=== PATIENT | male | born 1970 | race American Indian/Alaskan Native ===

== ENCOUNTER 2019-06-08 10:45 | Emergency (ER) | payer SELFPAY ==
[2019-06-08 11:11] LABS: Basophils % (Auto) 0.3 % (0.0-1.8); Eosinophils % (Auto) 0.3 % (0.0-4.3); Hematocrit 40.4 % (35.5-45.6); Hemoglobin 13.5 gm/dl (11.8-15.2); Lymphocytes # (Auto) 3.4 K/mm3 (1.2-5.4); Lymphocytes % (Auto) 26.8 % (13.4-35.0); Mean Corpuscular HGB Conc 33 % (32-34); Mean Corpuscular Volume 84 fl (84-94); Monocytes # (Auto) 0.7 K/mm3 (0.0-0.8); Monocytes % (Auto) 5.8 % (0.0-7.3); Platelet Count 296 K/mm3 (140-440); Red Blood Count 4.83 M/mm3 (3.65-5.03); Red Cell Distribution Width 14.2 % (13.2-15.2)
[2019-06-08 11:31] LABS: BUN/Creatinine Ratio 14; Blood Urea Nitrogen 11 mg/dL (9-20); Hemolysis Index 7
[2019-06-08] MEDS ORDERED: MORPHINE IV ONE (11:57)
[2019-06-08] MEDS ORDERED: NITROSTAT SL ONE (11:58)
[2019-06-08] MEDS ORDERED: ZOFRAN IV ONE (11:58)
[2019-06-08] MEDS ORDERED: ASPIRIN PO SCH (12:00)
--- NOTE | 2019-06-08 12:28 | XRay Report ---
CHEST 2 VIEWS INDICATION: Chest Pain. COMPARISON: None. FINDINGS: Support devices: None. Heart: Within normal limits. Lungs/Pleura: No acute air space or interstitial disease. No significant pleural effusion. IMPRESSION: No acute findings. Signer Name: Francisco Rodriguez MD Signed: 06/08/2019 12:24 PM Workstation Name: [id number]
--- NOTE | 2019-06-08 14:39 | Cat Scan Report ---
CT angio chest INDICATION / CLINICAL INFORMATION: chest pain, sob. TECHNIQUE: Axial CT images were obtained after injection of Omnipaque 350, 100 cc IV injection. IV contrast usin g CTA protocol. 3 plane MIP / 3D reconstructions were produced. All CT scans at this location are per formed using CT dose reduction for ALARA by means of automated exposure control. COMPARISON: None available. FINDINGS: The lungs contain no mass, infiltrate or pleural fluid. Negative for mediastinal mass or adenopathy. 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 Negative for aneurysm, dissection or pulmonary embolus. Imaging of the upper abdomen is unremarkable. IMPRESSION: Negative for pulmonary embolus or pneumonia. Signer Name: Francisco Rodriguez MD Signed: 06/08/2019 2:35 PM Workstation Name: [id number]
--- NOTE | 2019-06-08 14:46 | Emergency Department Report ---
ED Chest Pain HPI - General Chief Complaint: Chest Pain Stated Complaint: CHEST PAIN/SOB Time Seen by Provider: 06/08/19 11:50 Source: patient Mode of arrival: Ambulatory Limitations: No Limitations - History of Present Illness Severity scale (0 -10): 4 - Related Data Previous Rx's Medication Instructions Recorded Last Taken Type HYDROcodone/APAP 7.5-325 [[place] 1 each PO Q6HR PRN #20 tablet 05/19/14 Unknown Rx 7.5/325 mg] Ibuprofen [Motrin] 600 mg PO Q8H PRN #60 tablet 05/19/14 Unknown Rx Penicillin Vk [Veetids TAB] 500 mg PO QID #40 tablet 05/19/14 Unknown Rx Famotidine [Pepcid] 20 mg PO BID 30 Days #60 tablet 06/08/19 Unknown Rx Allergies Allergy/AdvReac Type Severity Reaction Status Date / Time No Known Allergies Allergy Unverified 05/19/14 08:23 ED Review of Systems ROS: Stated complaint: CHEST PAIN/SOB Other details as noted in HPI ED Past Medical Hx - Past Medical History Previous Medical History?: No - Surgical History Past Surgical History?: No - Social History Smoking Status: Never Smoker Substance Use Type: None - Medications Home Medications: Home Medications Medication Instructions Recorded Confirmed Last Taken Type HYDROcodone/APAP 7.5-325 [[place] 1 each PO Q6HR PRN #20 tablet 05/19/14 Unknown Rx 7.5/325 mg] Ibuprofen [Motrin] 600 mg PO Q8H PRN #60 tablet 05/19/14 Unknown Rx Penicillin Vk [Veetids TAB] 500 mg PO QID #40 tablet 05/19/14 Unknown Rx Famotidine [Pepcid] 20 mg PO BID 30 Days #60 tablet 06/08/19 Unknown Rx ED Physical Exam - General Limitations: No Limitations ED Course Vital Signs 06/08/19 06/08/19 10:58 12:49 Temperature 98.2 F Pulse Rate 80 Respiratory 18 16 Rate Blood Pressure 159/81 O2 Sat by Pulse 97 Oximetry ED Medical Decision Making - Lab Data Result diagrams: 06/08/19 11:01 06/08/19 11:01 Critical care attestation.: If time is entered above; I have spent that time in minutes in the direct care of this critically ill patient, excluding procedure time. ED Disposition Clinical Impression: Atypical chest pain Disposition: DC-01 TO HOME OR SELFCARE Is pt being admited?: No Does the pt Need Aspirin: No Condition: Stable Instructions: Chest Pain (ED) Prescriptions: Famotidine [Pepcid] 20 mg PO BID 30 Days #60 tablet Referrals: PHIL HANNAH MD [Primary Care Provider] - 3-5 Days LOREN SALAZAR MD [Staff Physician] - 3-5 Days
[2019-06-08 14:56] VITALS: BP 118/61
== END 2019-06-08 15:24 | disposition home or self-care (01) ==
LOC: ED 10:45
DX: R07.89 Other chest pain (principal); Z79.899 Other long term (current) drug therapy
CPT/HCPCS: 36415; 71046; 71275; 80048; 84484; 85025; 85379; 93005; 93010; 99285; Q9967

== ENCOUNTER 2020-04-08 20:17 | Emergency (ER) | payer SELFPAY ==
[2020-04-08] MEDS ORDERED: ASPIRIN 325 MG TAB PO ONE (20:21)
--- NOTE | 2020-04-08 20:52 | XRay Report ---
CHEST 2 VIEWS INDICATION / CLINICAL INFORMATION: Chest Pain. COMPARISON: 06/07/2019 FINDINGS: SUPPORT DEVICES: None. HEART / MEDIASTINUM: No significant abnormality. LUNGS / PLEURA: No significant pulmonary or pleural abnormality. No pneumothorax. ADDITIONAL FINDINGS: No significant additional findings. IMPRESSION: 1. No acute findings. Signer Name: Noel Olsen MD Signed: 04/08/2020 8:48 PM Workstation Name: [id number]
[2020-04-08 21:14] LABS: Basophils % (Auto) 0.3 % (0.0-1.8); Eosinophils % (Auto) 1.1 % (0.0-4.3); Lymphocytes % (Auto) 35.8 % (13.4-35.0); Monocytes % (Auto) 8.5 % (0.0-7.3)
[2020-04-08 21:18] LABS: Eosinophils # (Auto) 0.1 K/mm3 (0.0-0.4); Hematocrit 41.6 % (35.5-45.6); Hemoglobin 13.9 gm/dl (11.8-15.2); Lymphocytes # (Auto) 4.4 K/mm3 (1.2-5.4); Mean Corpuscular HGB Conc 33 % (32-34); Mean Corpuscular Volume 85 fl (84-94); Monocytes # (Auto) 1.2 K/mm3 (0.0-0.8); Platelet Count 304 K/mm3 (140-440); Red Blood Count 4.91 M/mm3 (3.65-5.03); Red Cell Distribution Width 13.6 % (13.2-15.2)
[2020-04-08 21:37] LABS: BUN/Creatinine Ratio 14; Blood Urea Nitrogen 13 mg/dL (9-20); Calcium 8.9 mg/dL (8.4-10.2); Hemolysis Index 11
[2020-04-08 22:30] VITALS: BP 185/93
== END 2020-04-08 21:53 | disposition left against medical advice (07) ==
LOC: ED 20:17
DX: R07.89 Other chest pain (principal); Z53.21 Procedure and treatment not carried out due to patient leaving prior to being seen by health care provider
CPT/HCPCS: 36415; 71046; 80048; 84484; 85025; 93005

== ENCOUNTER 2021-04-03 07:10 | Observation (INO) | payer SELFPAY ==
[2021-04-03] MEDS ORDERED: ASPIRIN 325 MG TAB PO ONE (08:32)
--- NOTE | 2021-04-03 08:36 | Event Note ---
ED Screening Note Date of service: 04/03/21 Time: 08:34 ED Screening Note: Patient complains of chest pain or shortness of breath This initial assessment/diagnostic orders/clinical plan/treatment(s) is/are subject to change based on patients health status, clinical progression and re-assessment by fellow clinical providers in the ED. Further treatment and workup at subsequent clinical providers discretion. Patient/guardian urged not to elope from the ED as their condition may be serious if not clinically assessed and managed. Initial orders include: Labs EKG Chest x-ray
[2021-04-03 09:01] LABS: Basophils % (Auto) 0.3 % (0.0-1.8); Eosinophils # (Auto) 0.1 K/mm3 (0.0-0.4); Eosinophils % (Auto) 0.7 % (0.0-4.3); Hematocrit 39.2 % (35.5-45.6); Hemoglobin 13.4 gm/dl (11.8-15.2); Lymphocytes # (Auto) 2.8 K/mm3 (1.2-5.4); Lymphocytes % (Auto) 20.3 % (13.4-35.0); Mean Corpuscular HGB Conc 34 % (32-34); Mean Corpuscular Volume 85 fl (84-94); Monocytes # (Auto) 0.8 K/mm3 (0.0-0.8); Monocytes % (Auto) 5.5 % (0.0-7.3); Platelet Count 291 K/mm3 (140-440); Red Blood Count 4.63 M/mm3 (3.65-5.03); Red Cell Distribution Width 14.3 % (13.2-15.2)
--- NOTE | 2021-04-03 09:28 | XRay Report ---
CHEST 2 VIEWS INDICATION: chest pain. COMPARISON: 04/08/2020 FINDINGS: Support devices: None. Heart: Within normal limits. Lungs/pleura: No acute air space or interstitial disease. No pneumothorax. Additional findings: None. IMPRESSION: No acute findings. Signer Name: Adal Mcclelland Jr, MD Signed: 04/03/2021 9:23 AM Workstation Name: [id number]
[2021-04-03 09:50] LABS: Alanine Aminotransferase 13 units/L (7-56); Albumin 3.6 g/dL (3.9-5); BUN/Creatinine Ratio 14; Blood Urea Nitrogen 11 mg/dL (9-20); Calcium 8.6 mg/dL (8.4-10.2); Hemolysis Index 4
--- NOTE | 2021-04-03 10:53 | Electrocardiograph Report ---
[facility] Test Date: 2021-04-03 Test Time: 07:35:17 Pat Name: KIMBERLY PEREZ Department: Room: Gender: M K 12 Principal: LEANDRO : 1970 Requested By: ED DOC Order Number: [id number] Reading MD: Lane Kelsey Measurements Intervals [place] Rate: 85 P: 48 OR: 182 QRS: 20 QRSD: 93 T: 40 QT: 348 QTc: 414 Interpretive Statements Sinus rhythm No previous ECG available for comparison Electronically Signed On 04-03-2021 10:53:[address]sey
--- NOTE | 2021-04-03 10:57 | Emergency Department Report ---
HPI - General Chief Complaint: Chest Pain Time Seen by Provider: 04/03/21 08:33 - HPI HPI: Room 22 The patient is a 50-year-old male present with a chief complaint of chest pain. Patient states for the past 2 days he has had substernal chest pressure has been intermittent in nature. Patient states is associated with shortness of breath and dizziness. Patient denies nausea/vomiting. The patient states he sweats all the time so he does not know if there is any diaphoresis associated with this chest pressure. Patient is an occasional cough that is nonproductive. Patient states he is never had a stress test or cardiac catheterization ED Past Medical Hx - Past Medical History Previous Medical History?: No - Surgical History Past Surgical History?: No - Family History Family history: no significant - Social History Smoking Status: Never Smoker Substance Use Type: None (Denies illicit drug use) - Medications Home Medications: Home Medications Medication Instructions Recorded Confirmed Last Taken Type HYDROcodone/APAP 7.5-325 [[place] 1 each PO Q6HR PRN #20 tablet 05/19/14 Unknown Rx 7.5/325 mg] Ibuprofen [Motrin] 600 mg PO Q8H PRN #60 tablet 05/19/14 Unknown Rx Penicillin Vk [Veetids TAB] 500 mg PO QID #40 tablet 05/19/14 Unknown Rx Famotidine [Pepcid] 20 mg PO BID 30 Days #60 tablet 06/08/19 Unknown Rx ED Review of Systems ROS: Stated complaint: CHEST PAIN Other details as noted in HPI Constitutional: no symptoms reported Eyes: denies: eye pain ENT: denies: throat pain Respiratory: cough, shortness of breath Cardiovascular: chest pain Endocrine: no symptoms reported Gastrointestinal: denies: nausea, vomiting Genitourinary: denies: dysuria Musculoskeletal: denies: back pain Neurological: denies: headache Physical Exam - Physical Exam Vital Signs: Vital Signs 04/03/21 07:51 Temperature 98.3 F Pulse Rate 67 Respiratory 13 Rate Blood Pressure 158/71 O2 Sat by Pulse 99 Oximetry Physical Exam: GENERAL: The patient is well-developed well-nourished male lying on stretcher not appearing to be in acute distress. [] HEENT: Normocephalic. Atraumatic. Extraocular motions are intact. Patient has moist mucous membranes. NECK: Supple. Trachea midline CHEST/LUNGS: Clear to auscultation. There is no respiratory distress noted. HEART/CARDIOVASCULAR: Regular. There is no tachycardia. There is no gallop rub or murmur. ABDOMEN: Abdomen is soft, nontender. Patient has normal bowel sounds. There is no abdominal distention. SKIN: There is no rash. There is no edema. There is no diaphoresis. NEURO: The patient is awake, alert, and oriented. The patient is cooperative. The patient has no focal neurologic deficits. The patient has normal speech MUSCULOSKELETAL: There is no evidence of acute injury. ED Course Vital Signs 04/03/21 07:51 Temperature 98.3 F Pulse Rate 67 Respiratory 13 Rate Blood Pressure 158/71 O2 Sat by Pulse 99 Oximetry ED Medical Decision Making - Lab Data Result diagrams: 04/03/21 08:46 04/03/21 08:46 Laboratory Tests 04/03/21 04/03/21 04/03/21 08:46 08:46 08:46 WBC 14.0 H RBC 4.63 Hgb 13.4 Hct 39.2 MCV 85 MCH 29 MCHC 34 RDW 14.3 Plt Count 291 Lymph % (Auto) 20.3 [place] % (Auto) 5.5 Eos % (Auto) 0.7 Baso % (Auto) 0.3 Lymph # (Auto) 2.8 [place] # (Auto) 0.8 Eos # (Auto) 0.1 Baso # (Auto) 0.0 Seg Neutrophils % 73.2 H Seg Neutrophils # 10.2 H Sodium 136 L Potassium 4.0 Chloride 98.8 Carbon Dioxide 29 Anion Gap 12 BUN 11 Creatinine 0.8 Estimated GFR > 60 BUN/Creatinine Ratio 14 Glucose 150 H Calcium 8.6 Total Bilirubin 0.40 AST 15 ALT 13 Alkaline Phosphatase 106 Troponin T < 0.010 NT-Pro-B Natriuret Pep 27.18 Total Protein 7.7 Albumin 3.6 L Albumin/Globulin Ratio 0.9 - EKG Data -: EKG Interpreted by Me EKG shows normal: sinus rhythm Rate: normal - EKG Data When compared to previous EKG there are: previous EKG unavailable Interpretation: other (No ischemic changes seen) - Radiology Data Radiology results: report reviewed (Chest x-ray), image reviewed (Chest x-ray) interpreted by me: Chest x-ray-no focal infiltrates, no pneumothorax. No foreign body seen [facility] [address] [place] [address] XRay Report Signed Patient: KIMBERLY PEREZ MR#: [id number] : 1970 Acct:[id number] Age/Sex: 50 / M ADM Date: 04/03/21 Loc: ED Attending Dr: Aracely cedillo Physician: ED MD MARIOLA Date of Service: 04/03/21 Procedure(s): XR chest routine 2V Accession Number(s): [id number] cc: ED DOCMD Fluoro Time In Minutes: CHEST 2 VIEWS INDICATION: chest pain. COMPARISON: 04/08/2020 FINDINGS: Support devices: None. Heart: Within normal limits. Lungs/pleura: No acute air space or interstitial disease. No pneumothorax. Additional findings: None. IMPRESSION: No acute findings. Signer Name: Adal Mcclelland Jr, MD Signed: 04/03/2021 9:23 AM Workstation Name: [id number] Transcribed By: TTR Dictated By: ADAL MCCLELLAND JR, MD Electronically Authenticated By: ADAL MCCLELLAND JR, MD Signed Date/Time: 04/03/21922 DD/ 2 TD/TT: Print Cancel - Differential Diagnosis ACS, pericarditis, GERD Critical care attestation.: If time is entered above; I have spent that time in minutes in the direct care of this critically ill patient, excluding procedure time. ED Disposition Clinical Impression: Chest pain Disposition: OP ADMIT IP TO THIS HOSP Is pt being admited?: Yes Does the pt Need Aspirin: Yes Condition: Fair Instructions: Nonspecific Chest Pain, Adult Referrals: PRIMARY CARE, [Primary Care Provider] - 3-5 Days Time of Disposition: 11:25 (Hospitalist notified (Dr Telles)) Heart Score - HEART Score History: Highly suspicious EKG: Normal Age: 45-65 Risk factors: 1-2 risk factors Troponin: < normal limit HEART Score: 4 - EKG Read Time Time EKG Completed: 07:35 EKG Read Time: 07:44
[2021-04-03] MEDS ORDERED: NITROGLYCERIN 2% OINT 1 GM TP ONE (10:58)
[2021-04-03] MEDS ORDERED: ONDANSETRON 4 MG/2 ML INJ IV PRN (13:25)
[2021-04-03] MEDS ORDERED: ACETAMINOPHEN 325 MG TAB PO PRN (13:25)
[2021-04-03] MEDS ORDERED: MAGNESIUM HYDROXIDE (MOM) ORAL LIQD UDC PO PRN (13:25)
[2021-04-03] MEDS ORDERED: NALOXONE 0.4 MG/1 ML INJ IV PRN (13:25)
[2021-04-03] MEDS ORDERED: MORPHINE 4 MG/1 ML INJ IV PRN (13:25)
[2021-04-03] MEDS ORDERED: oxyCODONE /ACETAMINOPHEN 5-325MG TAB PO PRN (13:25)
[2021-04-03] MEDS ORDERED: hydrALAZINE 20 MG/1 ML INJ IV PRN (13:36)
[2021-04-03] MEDS: AMOXICILLIN 500 MG CAP PO SCH ×2 (16:09→21:15)
[2021-04-03 16:12] LABS: Chol/HDL Ratio 4.16 %
--- NOTE | 2021-04-03 17:56 | History and Physical Report ---
History of Present Illness Date of examination: 04/03/21 Date of admission: 04/03/21 11:24 Chief complaint: Acute chest pain History of present illness: 50-year-old -[place] male who presents with acute chest pain. Chest pain substernal, nonradiating to the neck or to the left arm, 2 days of chest pain, no nausea vomiting dizziness numbness or tingling in hands or feet, no fevers or chills. Patient does complain of a dental abscess in the lower jaw. Patient states that he has had this for about 3 to 4 months, no antibiotics, patient has not seen a dentist. Patient came to [facility] for evaluation, EKG normal sinus rhythm, no ischemia seen. Troponins x2 -. Chest x-ray unremarkable. Patient states that the pain is decreasing and resolving. Past History Past Medical History: No medical history Past Surgical History: No surgical history Social history: no significant social history Medications and Allergies Allergies Allergy/AdvReac Type Severity Reaction Status Date / Time No Known Allergies Allergy Unverified 05/19/14 08:23 Home Medications Medication Instructions Recorded Confirmed Last Taken Type HYDROcodone/APAP 7.5-325 [[place] 1 each PO Q6HR PRN #20 tablet 05/19/14 Unknown Rx 7.5/325 mg] Ibuprofen [Motrin] 600 mg PO Q8H PRN #60 tablet 05/19/14 Unknown Rx Penicillin Vk [Veetids TAB] 500 mg PO QID #40 tablet 05/19/14 Unknown Rx Famotidine [Pepcid] 20 mg PO BID 30 Days #60 tablet 06/08/19 Unknown Rx Active Meds: Active Medications Acetaminophen (Acetaminophen 325 Mg Tab) 650 mg PO Q4H PRN PRN Reason: Pain MILD(1-3)/Fever >100.5/KANG Amoxicillin (Amoxicillin 500 Mg Cap) 500 mg PO Q8HR KELLY; Protocol Last Admin: 04/03/21 16:09 Dose: 500 mg Documented by: Heparin Sodium (Porcine) (Heparin 5,000 Unit/1 Ml Vial) 5,000 unit SUB-Q Q12HR KELLY Hydralazine HCl (Hydralazine 20 Mg/1 Ml Inj) 10 mg IV Q4HR PRN PRN Reason: Blood Pressure Magnesium Hydroxide (Magnesium Hydroxide (Mom) Oral Liqd Udc) 30 ml PO Q4H PRN PRN Reason: Constipation Morphine Sulfate (Morphine 4 Mg/1 Ml Inj) 4 mg IV Q4H PRN PRN Reason: Pain , Severe (7-10) Naloxone HCl (Naloxone 0.4 Mg/1 Ml Inj) 0.1 mg IV Q2MIN PRN PRN Reason: Res Rate </= 8 or 02 SAT < 92% Ondansetron HCl (Ondansetron 4 Mg/2 Ml Inj) 4 mg IV Q8H PRN PRN Reason: Nausea And Vomiting Oxycodone/Acetaminophen (Oxycodone /Acetaminophen 5-325mg Tab) 1 tab PO Q6H PRN PRN Reason: Pain, Moderate (4-6) Sodium Chloride (Sodium Chloride 0.9% 10 Ml Flush Syringe) 10 ml IV BID KELLY Sodium Chloride (Sodium Chloride 0.9% 10 Ml Flush Syringe) 10 ml IV PRN PRN PRN Reason: LINE FLUSH Exam - Physical Exam Narrative exam: General appearance: Obese, no acute distress, well-nourished EENT: PERRL, EOM intact, hearing intact, lower jaw, right sided abscess, tender to touch, no bleeding, no discharge Neck: Present: supple, normal ROM Respiratory: bilateral CTA, negative: rales, rhonchi, wheezing Cardiovascular: Regular rate/rhythm, Normal S1 & S2. No gallop, rub Extremities: no ischemia, No edema, normal temperature, normal color, Full ROM Abdominal: soft, no tenderness, non-distended, normal bowel sounds Integumentary: Present: clear, warm, dry no wounds, no erythema noted Psychiatric: appropriate mood/affect, intact judgment & insight Neurologic: CNII-XII intact, moves all extremities, no sensory or motor abnormalities - Constitutional Vitals: Temp Pulse Resp BP Pulse Ox 97.2 F L 78 17 136/65 98 04/03/21 16:07 04/03/21 16:07 04/03/21 16:07 04/03/21 16:07 04/03/21 16:07 HEART Score - HEART Score EKG: Normal Age: 45-65 Risk factors: 1-2 risk factors Troponin: Troponin T < 0.010 ng/mL (0.00-0.029) 04/03/21 15:08 Troponin: < normal limit Results - Labs CBC & Chem 7: 04/03/21 08:46 04/03/21 08:46 Labs: Laboratory Last Values WBC 14.0 K/mm3 (4.5-11.0) H 04/03/21 08:46 RBC 4.63 M/mm3 (3.65-5.03) 04/03/21 08:46 Hgb 13.4 gm/dl (11.8-15.2) 04/03/21 08:46 Hct 39.2 % (35.5-45.6) 04/03/21 08:46 MCV 85 fl (84-94) 04/03/21 08:46 MCH 29 pg (28-32) 04/03/21 08:46 MCHC 34 % (32-34) 04/03/21 08:46 RDW 14.3 % (13.2-15.2) 04/03/21 08:46 Plt Count 291 K/mm3 (140-440) 04/03/21 08:46 Lymph % (Auto) 20.3 % (13.4-35.0) 04/03/21 08:46 [place] % (Auto) 5.5 % (0.0-7.3) 04/03/21 08:46 Eos % (Auto) 0.7 % (0.0-4.3) 04/03/21 08:46 Baso % (Auto) 0.3 % (0.0-1.8) 04/03/21 08:46 Lymph # (Auto) 2.8 K/mm3 (1.2-5.4) 04/03/21 08:46 [place] # (Auto) 0.8 K/mm3 (0.0-0.8) 04/03/21 08:46 Eos # (Auto) 0.1 K/mm3 (0.0-0.4) 04/03/21 08:46 Baso # (Auto) 0.0 K/mm3 (0.0-0.1) 04/03/21 08:46 Seg Neutrophils % 73.2 % (40.0-70.0) H 04/03/21 08:46 Seg Neutrophils # 10.2 K/mm3 (1.8-7.7) H 04/03/21 08:46 Sodium 136 mmol/L (137-145) L 04/03/21 08:46 Potassium 4.0 mmol/L (3.6-5.0) 04/03/21 08:46 Chloride 98.8 mmol/L (98-107) 04/03/21 08:46 Carbon Dioxide 29 mmol/L (22-30) 04/03/21 08:46 Anion Gap 12 mmol/L 04/03/21 08:46 BUN 11 mg/dL (9-20) 04/03/21 08:46 Creatinine 0.8 mg/dL (0.8-1.3) 04/03/21 08:46 Estimated GFR > 60 ml/min 04/03/21 08:46 BUN/Creatinine Ratio 14 % 04/03/21 08:46 Glucose 150 mg/dL (75-100) H 04/03/21 08:46 Calcium 8.6 mg/dL (8.4-10.2) 04/03/21 08:46 Total Bilirubin 0.40 mg/dL (0.1-1.2) 04/03/21 08:46 AST 15 units/L (5-40) 04/03/21 08:46 ALT 13 units/L (7-56) 04/03/21 08:46 Alkaline Phosphatase 106 units/L (35-129) 04/03/21 08:46 Troponin T < 0.010 ng/mL (0.00-0.029) 04/03/21 15:08 NT-Pro-B Natriuret Pep 27.18 pg/mL (0-450) 04/03/21 08:46 Total Protein 7.7 g/dL (6.3-8.2) 04/03/21 08:46 Albumin 3.6 g/dL (3.9-5) L 04/03/21 08:46 Albumin/Globulin Ratio 0.9 % 04/03/21 08:46 Triglycerides 75 mg/dL (2-149) 04/03/21 15:08 Cholesterol 154 mg/dL (50-199) 04/03/21 15:08 LDL Cholesterol Direct 112 mg/dL (50-130) 04/03/21 15:08 HDL Cholesterol 37 mg/dL (40-59) L 04/03/21 15:08 Cholesterol/HDL Ratio 4.16 % 04/03/21 15:08 [place]/IV: Voiding Method Urinal Assessment and Plan Assessment and plan: 50-year-old -[place] male who presents with acute chest pain Atypical chest pain EKG reviewed, normal sinus rhythm, no ischemia Troponins x2 was found to be negative, continue to trend Chest x-ray without any acute abnormalities Stress test pending, n.p.o. after midnight Echocardiogram pending Hypertensive urgency Blood pressure elevated, history of hypertension Hydralazine as needed Pending A1c Continue to monitor, patient will need to be started on oral medication Dental abscess No signs of sepsis Start amoxicillin 500 mg every 8 hours Patient will need to follow-up at the dentist CODE STATUS: Full DVT prophylaxis: Heparin Disposition: Pending cardiac stress test and echocardiogram, monitor blood pressure and make adjustments to medications as needed. Anticipate discharge within 48 hours. Advance Directives: Yes VTE prophylaxis?: Chemical Plan of care discussed with patient/family: Yes
[2021-04-03] MEDS: HEPARIN 5,000 UNIT/1 ML VIAL SUB-Q SCH (21:17)
[2021-04-04 05:22] LABS: BUN/Creatinine Ratio 10; Blood Urea Nitrogen 9 mg/dL (9-20); Calcium 8.2 mg/dL (8.4-10.2); Hemolysis Index 9
[2021-04-04] MEDS: AMOXICILLIN 500 MG CAP PO SCH (07:59)
[2021-04-04 09:10] VITALS: BP 172/73
[2021-04-04] MEDS: HEPARIN 5,000 UNIT/1 ML VIAL SUB-Q SCH (10:09)
--- NOTE | 2021-04-04 11:58 | Discharge Summary ---
Providers - Providers Date of Admission: 04/03/21 11:24 Date of discharge: 04/04/21 Attending physician: SULAIMAN GIBSON MD Primary care physician: [employer] Hospitalization Reason for admission: chest pain Condition: Stable Hospital course: Assessment and plan: 50-year-old -[place] male who presents with acute chest pain. Patient's chest pain resolved within 24 hours, states that he felt good going home. Educated patient on his new diagnosis of diabetes mellitus type 2, will give prescription for oral medications, patient follow-up at primary care physician. Atypical chest pain EKG reviewed, normal sinus rhythm, no ischemia Troponins x3 negative Chest x-ray without any acute abnormalities Echocardiogram with LVEF of 55 to 60%, left ventricular hypertrophy, trace mitral regurgitation, mild tricuspid regurgitation, mild pulmonary hypertension. Hypertensive urgency Blood pressure elevated, history of hypertension Hydralazine as needed Pending A1c diabetes mellitus type 2 Continue to monitor, patient will need to be started on oral medication Diabetes mellitus type 2, [id number], new diagnosis A1c 7.2 Start patient on lisinopril, statin, Metformin Patient follow-up at PCP next week. Dental abscess No signs of sepsis Start amoxicillin 500 mg every 8 hours Patient will need to follow-up at the dentist Disposition: DC- TO HOME OR SELFCARE Final Discharge Diagnosis (Prints w/discharge instructions): Diabetes mellitus type 2, hypertensive urgency, dental abscess, atypical chest pain Time spent for discharge: 35 minutes Core Measure Documentation - Palliative Care Palliative Care/ Comfort Measures: Not Applicable - Core Measures Any of the following diagnoses?: none Exam - Physical Exam Narrative exam: General appearance: Obese, no acute distress, well-nourished EENT: PERRL, EOM intact, hearing intact, lower jaw, right sided abscess Neck: Present: supple, normal ROM Respiratory: bilateral CTA, negative: rales, rhonchi, wheezing Cardiovascular: Regular rate/rhythm, Normal S1 & S2. No gallop, rub Extremities: no ischemia, No edema, normal temperature, normal color, Full ROM Abdominal: soft, no tenderness, non-distended, normal bowel sounds Integumentary: Present: clear, warm, dry no wounds, no erythema noted Psychiatric: appropriate mood/affect, intact judgment & insight Neurologic: CNII-XII intact, moves all extremities, no sensory or motor abnormalities - Constitutional Vitals: Temp Pulse Resp BP Pulse Ox 97.6 F 62 18 172/73 95 04/04/21 09:01 04/04/21 11:57 04/04/21 09:01 04/04/21 11:57 04/04/21 09:01 Plan Activity: no restrictions Diet: diabetic Follow up with: PRIMARY CARE, [Primary Care Provider] - 3-5 Days Prescriptions: AtorvaSTATin [Lipitor] 40 mg PO QHS 90 Days #90 tab metFORMIN [Glucophage] 500 mg PO BID 90 Days #180 tablet Amoxicillin [Trimox CAP] 500 mg PO Q8HR #30 capsule lisinopriL [Zestril TAB] 5 mg PO QDAY 90 Days #90 tablet
[2021-04-04] MEDS ORDERED: LISINOPRIL 5 MG TAB PO SCH (12:00)
[2021-04-04] MEDS ORDERED: LISINOPRIL 10 MG TAB PO SCH (12:00)
--- NOTE | 2021-04-06 11:41 | Electrocardiograph Report ---
[facility] Test Date: 2021-04-03 Test Time: 11:06:59 Pat Name: KIMBERLY PEREZ Department: Room: A471 1 Gender: M International Specialist: DEMAR : 1970 Requested By: KHANH PADILLA Order Number: [id number] Reading MD: Tobi Brown Measurements Intervals [place] Rate: 70 P: -3 RI: 189 QRS: 16 QRSD: 93 T: 22 QT: 375 QTc: 405 Interpretive Statements Sinus rhythm Compared to ECG 04/03/2021 07:35:17 No significant changes Electronically Signed On 04-06-2021 11:40:23 EDT by Tobi Brown
== END 2021-04-04 13:14 | disposition home or self-care (01) ==
LOC: ED 07:10 → 4A 11:24
PROVIDERS: ADMIT Family Medicine; ATTEND Family Medicine
DX: R07.89 Other chest pain (principal); I16.1 Hypertensive emergency; K04.7 Periapical abscess without sinus; Z79.899 Other long term (current) drug therapy; Z98.890 Other specified postprocedural states
CPT/HCPCS: 36415; 71046; 80048; 80053; 80061; 83036; 83880; 84484; 85025; 93005; 93306; 96372; 96374; 99285; G0378; J0360; J1644